=== PATIENT | male | born 1975 | race Caucasian/White ===

== ENCOUNTER → 2023-02-24 | Outpatient (CLI) | payer BC ==
--- NOTE | 2023-02-24 22:16 | MR ---
EXAMINATION TYPE: MR lumbar spine wo con DATE OF EXAM: 02/24/2023 COMPARISON: None HISTORY: 47-year-old male M5 4.50, Pain right lower lumbar TECHNIQUE: Multiplanar, multisequence images of the lumbar spine were acquired without IV contrast. FINDINGS: Mild degenerative disc disease L4-L5 and L5-S1 with early disc desiccation and mild disc bulging. No large focal disc herniation or significant spinal canal stenosis. Vertebral body heights are preserved and alignment is maintained. No suspicious bone marrow replacement. Conus medullaris is normal. There is mild facet degenerative change of the lower lumbar spine. No significant neuroforaminal narrowing on either side. No prevertebral or paravertebral soft tissue abnormality seen. IMPRESSION: 1. Mild early degenerative disc disease L4-L5 and L5-S1 with early intervertebral disc desiccation an d mild disc bulging. No large focal disc herniation or significant spinal canal stenosis. 2. Mild facet arthropathy lower lumbar spine. No significant neuroforaminal stenosis seen.
== END | disposition home or self-care (01) ==
LOC: RADMRIMAIN 12:52
PROVIDERS: ATTEND Nurse Practitioner Family
DX: M51.37 Other intervertebral disc degeneration, lumbosacral region (principal); M47.816 Spondylosis without myelopathy or radiculopathy, lumbar region
CPT/HCPCS: 72148

== ENCOUNTER → 2024-01-17 | Outpatient (CLI) | payer BC ==
--- NOTE | 2024-01-24 07:58 | CT ---
EXAMINATION TYPE: CT sinus wo con CT DLP: 862 mGycm, Automated exposure control for dose reduction was used. DATE OF EXAM: 01/17/2024 1:22 PM COMPARISON: None.. CLINICAL INDICATION:Male, 48 years old with history of J32.0 chronic sinusitis; , sinus pressure/head aches TECHNIQUE: Multiple thin axial images were obtained through the paranasal sinuses without the use of IV contrast. Additional coronal and sagittal reformatted images were submitted for evaluation. Contrast used: none Oral contrast used: none FINDINGS: Frontal sinuses: Normally developed and aerated. Maxillary Sinuses: Normally developed and aerated. Maxillary Infundibula([facility]): Clear, however, I suspect there is been surgery in terms of sinuplasty. Ethmoid sinuses: Normally developed and aerated. Sphenoid sinuses: Normally developed and aerated. Sphenoid sinuses are clear. No evidence of optic ne rve dehiscence within the sphenoid sinus. Nasal septum: Right convex bowing of the nasal septum. Nasal Turbinates: Within normal limits. Mastoid air cells & middle ears: The air cells are clear. The middle ears are grossly unremarkable. Modified Soft tissues & Brain: Partially seen without gross abnormality. Globes are intact. Lamina papyracea is intact without evidence of remote orbital fracture or orbital prolapse into the e thmoid sinus. IMPRESSION: 1. No significant mucosal sinus disease. 2. The ostiomeatal units, frontonasal and sphenoethmoidal passages are clear. Presumed postoperative changes. Correlate with surgical history.
== END | disposition home or self-care (01) ==
LOC: RADCTMAIN 12:44
PROVIDERS: ATTEND Otolaryngology
DX: J32.0 Chronic maxillary sinusitis (principal)
CPT/HCPCS: 70486